=== PATIENT | female | born 1955 | race Caucasian/White ===

== ENCOUNTER 2020-07-30 14:19 | Outpatient (REF) | payer OTHER, SELFPAY ==
--- NOTE | 2020-07-30 14:24 | MM_ITS ---
EXAMINATION: MM SCREENING DIGITAL BREAST TOMOSYNTHESIS, BILATERAL CLINICAL INFORMATION: Screening. Asymptomatic. Personal history right ADH on stereotactic biopsy 2015. Status post subsequent outside open surgical biopsy 12/13/2016 (biopsy site changes with fibrosis, acute and chronic inflammation and hemorrhage, no ductal carcinoma in situ). The lifetime risk of breast cancer based on the Tyrer-Cuzick Model is 26%. COMPARISON: Mammography: 07/25/2019, 06/21/2018, 11/24/2017, 05/23/2017 TECHNIQUE: Digital breast tomosynthesis is performed in both the craniocaudal and mediolateral oblique views along with computer-aided detection (CAD). Synthesized 2D images are generated from the tomosynthesis. Additional left CC and left MLO views are provided. FINDINGS: There are scattered areas of fibroglandular density (ACR BI-RADS breast composition Category b). The breasts show no interval mass or architectural abnormality or developing density. The left breast shows no abnormal calcifications. The right breast has post therapy changes with surgical clips and mild reduced breast size and stable scarring. There are some fine stable calcifications anteriorly in the area of the dermal scar. Some new calcifications are present at the lumpectomy bed. Patient will be recalled for additional magnification views to further characterize. MM/MM tomosynthesis screening BI IMPRESSION: 1. Right: Increased calcifications in the lumpectomy bed. 2. Left: No mammographic evidence of malignancy. ASSESSMENT: BI-RADS 0: Incomplete - Need Additional Imaging Evaluation RECOMMENDATION: 1. Additional views of the right breast (magnification CC, magnification ML). 2. Radiology department staff will contact the patient for additional imaging. 3. The lifetime risk of breast cancer based on the Tyrer-Cuzick Model is 26%. Additional annual adjunct screening with breast MRI may be of benefit in women with a risk score of 20% or greater. This patient's information was entered into a reminder system with a target due date for their next mammogram.
== END 2020-07-30 14:20 | disposition home or self-care (01) ==
LOC: HO.MAMMO 14:19
PROVIDERS: PCP Hospitalist; Visit Provider Hospitalist
DX: Z12.31 Encounter for screening mammogram for malignant neoplasm of breast (principal)
CPT/HCPCS: 77063; 77067

== ENCOUNTER 2020-08-27 14:25 | Outpatient (REF) | payer OTHER, SELFPAY ==
--- NOTE | ~2020-08-27 | MM_ITS ---
EXAMINATION: MM DIAGNOSTIC DIGITAL BREAST TOMOSYNTHESIS, RIGHT CLINICAL INFORMATION: Calcifications in the post lumpectomy bed. COMPARISON: Mammography: July 30, 2020 and studies dating back to September 19, 2011 TECHNIQUE: Digital breast mammography in spot magnification views craniocaudal and 90 degree mediolateral projections. FINDINGS: There are scattered areas of fibroglandular density (ACR BI-RADS breast composition Category b). The developing calcifications are likely dystrophic in nature and six-month follow-up magnification films are recommended. Results are discussed with the patient at time of visit. MM/MM tomosynthesis diagnostic RT IMPRESSION: Right breast calcifications within the post lumpectomy bed are likely developing dystrophic calcifications. Six-month follow-up right breast study suggested. ASSESSMENT: BI-RADS 3: Probably Benign RECOMMENDATION: Diagnostic mammography in 6 months. This patient's information was entered into a reminder system with a target due date for their next mammogram.
== END 2020-08-27 14:26 | disposition home or self-care (01) ==
LOC: HO.MAMMO 14:25
PROVIDERS: PCP Hospitalist; Visit Provider Hospitalist
DX: R92.1 Mammographic calcification found on diagnostic imaging of breast (principal)
CPT/HCPCS: 77061; 77065

== ENCOUNTER 2021-02-25 14:20 | Outpatient (REF) | payer OTHER, SELFPAY ==
--- NOTE | ~2021-02-25 | MM_ITS ---
EXAMINATION: MM DIAGNOSTIC DIGITAL BREAST TOMOSYNTHESIS, RIGHT CLINICAL INFORMATION: Short interval six-month follow-up probable benign dystrophic calcifications at lumpectomy site. Personal history right ADH on stereotactic biopsy 2015. Status post subsequent outside open surgical biopsy 12/13/2016 (biopsy site changes with fibrosis, acute and chronic inflammation and hemorrhage, no ductal carcinoma in situ). The lifetime risk of breast cancer based on the Tyrer-Cuzick Model is 25%. COMPARISON: Mammography: 08/27/2020, 07/30/2020 (BI-RADS 0), 07/25/2019, 06/21/2018 TECHNIQUE: Digital breast tomosynthesis is performed in both the craniocaudal and mediolateral oblique views along with computer-aided detection (CAD). Synthesized 2D images are generated from the tomosynthesis. Additional magnification right CC and magnification right ML views are obtained. FINDINGS: There are scattered areas of fibroglandular density (ACR BI-RADS breast composition Category b). There are post therapy changes with surgical clips at posterior 12:00 position. There are some benign appearing coarse calcifications at the lumpectomy site. No interval suspicious calcifications in this area. There are incidental benign round calcifications again noted in the dermal scar. There is no interval mass or architectural abnormality or developing density. Results are provided to the patient at time of visit by the technologist. Will obtain magnification views at time of annual bilateral exam, due in 6 months. MM/MM tomosynthesis diagnostic RT IMPRESSION: Benign appearing dystrophic calcification in the lumpectomy bed. No interval suspicious changes. ASSESSMENT: BI-RADS 3: Probably Benign RECOMMENDATION: 1. Diagnostic mammography at time of annual bilateral exam, due in 6 months. 2. The lifetime risk of breast cancer based on the Tyrer-Cuzick Model is 25%. Additional annual adjunct screening with breast MRI may be of benefit in women with a risk score of 20% or greater. This patient's information was entered into a reminder system with a target due date for their next mammogram.
== END 2021-02-25 14:21 | disposition home or self-care (01) ==
LOC: HO.MAMMO 14:20
PROVIDERS: PCP Hospitalist; Visit Provider Hospitalist
DX: R92.1 Mammographic calcification found on diagnostic imaging of breast (principal)
CPT/HCPCS: 77061; 77065

== ENCOUNTER 2021-08-30 14:23 | Outpatient (REF) | payer OTHER, SELFPAY ==
--- NOTE | ~2021-08-30 | MM_ITS ---
EXAMINATION: MM DIAGNOSTIC DIGITAL BREAST TOMOSYNTHESIS, BILATERAL CLINICAL INFORMATION: Due for yearly. Also short interval follow-up probable benign dystrophic calcifications at right lumpectomy site, performed for atypia. Personal history right ADH on stereotactic biopsy 2015. Status post subsequent outside open surgical biopsy 12/13/2016 (biopsy site changes with fibrosis, acute and chronic inflammation and hemorrhage, no ductal carcinoma in situ). The lifetime risk of breast cancer based on the Tyrer-Cuzick Model is 25%. COMPARISON: Mammography: 02/25/2021, 08/27/2020, 07/30/2020 (BI-RADS 0), 07/25/2019, 06/21/2018 TECHNIQUE: Digital breast tomosynthesis is performed in both the craniocaudal and mediolateral oblique views along with computer-aided detection (CAD). Synthesized 2D images are generated from the tomosynthesis. FINDINGS: There are scattered areas of fibroglandular density (ACR BI-RADS breast composition Category b). There are post therapy changes on the right with surgical clips posterior 12:00 position. There are some benign coarse dystrophic calcifications at the lumpectomy site and some other uniform round calcifications near the dermal scar upper anterior right breast. No interval suspicious change. Left breast is unremarkable. There is no interval mass or architectural abnormality or abnormal calcifications. Results are provided to the patient at time of visit by the technologist. MM/MM tomosynthesis diagnostic BI IMPRESSION: 1. Right: Post therapy changes right breast. Probable benign dystrophic calcifications at lumpectomy site along with other uniform round calcifications near dermal scar. 2. Left: No mammographic evidence of malignancy. ASSESSMENT: BI-RADS 3: Probably Benign RECOMMENDATION: Diagnostic mammography at time of next annual exam, due in 12 months. This patient's information was entered into a reminder system with a target due date for their next mammogram.
== END 2021-08-30 14:24 | disposition home or self-care (01) ==
LOC: HO.MAMMO 14:23
PROVIDERS: Visit Provider Hospitalist
DX: R92.1 Mammographic calcification found on diagnostic imaging of breast (principal)
CPT/HCPCS: 77062; 77066

== ENCOUNTER 2022-01-12 16:29 | Emergency (ER) | payer OTHER, SELFPAY ==
--- NOTE | ~2022-01-12 | XR_ITS ---
EXAMINATION: XR HAND, LEFT CLINICAL INFORMATION: Dog bite. Evaluate for foreign body COMPARISON: None TECHNIQUE: PA, lateral, and oblique views of the left hand. FINDINGS: There is diffuse soft tissue thickening about the hand. There appears be a soft tissue defect about the fourth digit more so in the region of the mid phalanx. Along the ulnar aspect of the fourth middle phalanx there is a tiny 2 mm ossific density seen. This is only appreciated well on the frontal view and not well seen on the other obliquities. I do not appreciate a definitive donor site. Tiny fracture would be suspected. Foreign body would be considered less likely. XR/XR hand LT 2V IMPRESSION: Soft tissue thickening and likely soft tissue defect about the fourth digit. On the frontal view there is a tiny ossific density along the ulnar aspect of the fourth middle phalanx. This is not well appreciated on the other obliquities. Tiny fracture fragment would be suspected but I do not appreciate any definitive donor site. Radiopaque foreign body cannot be excluded either.
[2022-01-12 16:34] VITALS: BP 166/92; PULSE 117; RESP 20; TEMP 36.8; O2SAT 96; BMI 31.6
--- NOTE | 2022-01-12 17:01 | ED_ITS ---
HPI - Animal Bite General Chief Complaint: Animal Bite Stated Complaint: dog bite left hand Time Seen by Provider: 01/12/22 16:58 Source: patient Mode of arrival: ambulatory Limitations: no limitations History of Present Illness HPI narrative: 66-year-old female previously healthy here with report of dog bite the left 4th digit which occurred just prior to arrival. Patient tells me she was breaking up a fight between 2 medium-sized dogs when her hand was bit by 1 of the dogs. Both of the dogs are owned by family members in their rabies vaccinations are up to date. Patient's tetanus status is unknown.. She reports laceration to left 4th digit. No numbness, tingling, weakness of the digit. MD complaint: animal bite Related Data Previous Rx's Medication Instructions Recorded amoxicillin 875 mg-potassium 1 tab PO BID #14 tabs 01/12/22 clavulanate 125 mg tablet Allergies Allergy/AdvReac Type Severity Reaction Status Date / Time Sulfa (Sulfonamide Allergy Unknown Verified 12/22/17 00:00 Antibiotics) Latex Gloves Allergy Unknown Uncoded 12/22/17 00:00 Review of Systems Review of Systems: Yes all other systems are reviewed and are negative Constitutional: Constitutional: Reports no additional constitutional complaints, Denies body ache(s), Denies chills, Denies fever(s), Denies headache(s) and Denies weakness Eyes: Eyes: Reports no additional eye complaints and Denies change in vision ENT: Reports system reviewed and no additional complaints, except as documented, Denies dizziness, Denies headache(s), Denies nasal congestion, Denies nasal discharge and Denies neck pain Cardiovascular: Cardiovascular: Reports no additional cardiovascular complaints, Denies chest pain, Denies leg edema and Denies dyspnea Respiratory: Respiratory: Reports no additional respiratory complaints, Denies cough and Denies dyspnea Gastrointestinal: Gastrointestinal: Reports no additional gastrointestinal complaints, Denies abdominal pain, Denies diarrhea, Denies nausea and Denies vomiting Genitourinary: Genitourinary: Reports no additional female genitourinary complaints and Denies urinary incontinence Musculoskeletal: Musculoskeletal: Reports no additional musculoskeletal complaints, Denies back pain, Denies arthralgias, Denies joint swelling, Denies neck pain, Denies numbness and Denies tingling Integumentary/Breasts: Skin/Breast: Reports system reviewed and no additional complaints, except as docu and Denies rash Comments: Laceration Neurologic: Reports system reviewed and no additional complaints, except as documented, Denies dizziness, Denies headache(s), Denies numbness, Denies tingling and Denies weakness PMFSH Past Medical History Attestation statement: The following information was validated with the patient. Source: old records reviewed and nursing notes reviewed Social History Social History Advance Directives: No Advance Directives Information Provided: No Physical Exam ED Vital Signs: Vital Signs - 24 hr 01/12/22 16:34 Temperature 98.2 F Pulse Rate 117 H Respiratory Rate 20 Blood Pressure 166/92 H Pulse Oximetry 96 Oxygen Delivery Method Room Air BMI result Body Mass Index 31.6 Const General: cooperative, healthy appearing, comfortable and no acute distress Orientation/consciousness: patient oriented x3 Limitations: no limitations HENMT Head: Yes normal to inspection Ears: hearing grossly normal bilaterally Eyes General: appearance normal, both eyes and all related structures Pupils: Equal, round and reactive pupils present Neck Neck: Yes normal visual inspection Chest Chest palpation & inspection: normal inspection of the chest Resp Effort & Inspection: normal respiratory effort Auscultation: clear to auscultation bilaterally Cardio Rate: regular rate Rhythm: regular rhythm Peripheral pulses: Peripheral pulses 2+ throughout GI Inspection: Yes normal to inspection Back/Spine/Pelvis Thoracic/Lumbar Spine: thoracic and lumbar spine normal to inspection Skin General skin exam: no rashes or lesions noted Neuro General: patient oriented x3 and moves all extremities Cranial nerves: Yes Equal, round and reactive pupils present Extrem Other: Two lacerations noted over the volar aspect of the 4th digit. There is full range of motion the digit. Patient is able to flex and extend with no difficulty. Neurovascularly intact distally. Hand/finger images: 1. 3 cm laceration with subcutaneous tissue noted 2. 1 cm laceration with subcutaneous tissue noted Course Course Course Narrative: Dog bite to left 4th digit. The dogs have been vaccinated for rabies. There is a large laceration to the volar aspect of the left 4th digit. Due to the size of laceration we discussed closing the wounds loosely. See procedure note. Of the wound was extensively irrigated with Betadine and normal saline. The hand x-ray showed ?tiny density on the frontal view however this is not visualized on any other views. Less likely foreign body. Question fracture fragment. The patient received 1 dose of prophylactic Augmentin and tetanus while she was here in the emergency department. We discussed that she should return for any signs of infection. Reviewed worrisome signs and symptoms of when to return to the emergency department. Comfortable discharge home. MDM - Animal Bite MDM Narrative Medical decision making narrative: 66-year-old female here with dog bite to the left 4th finger. Patient is right- hand dominant. She has a laceration noted over volar aspect that will need a wound repair. Will obtain x-ray to rule out foreign body. Patient will be updated on her tetanus. Will give prophylactic antibiotics Differential Diagnosis Differential diagnosis: Likely bite by animal Medical Records Attestation: I reviewed the patient's medical records. Lab Data Attestation: I reviewed the patient's lab results. Imaging Data hand xray: Attestation: I personally reviewed and interpreted this imaging study as follows: Radiologist's impression: [place] [id number] XRay Report Signed Patient: Keren Monreal MR#: [id number] : 1955 Acct:[id number] Age/Sex: 66 / F ADM Date: 01/12/22 Loc: HO.ED Attending Dr: Ordering Physician: Danielle Henriquez NP Date of Service: 01/12/22 Procedure(s): XR hand LT 2V Accession Number(s): [id number] cc: Danielle Henriquez NP~ EXAMINATION: XR HAND, LEFT CLINICAL INFORMATION: Dog bite. Evaluate for foreign body? COMPARISON: None? TECHNIQUE: PA, lateral, and oblique views of the left hand. FINDINGS: There is diffuse soft tissue thickening about the hand. There appears be a soft tissue defect about the fourth digit more so in the region of the mid phalanx. Along the ulnar aspect of the fourth middle phalanx there is a tiny 2 mm ossific density seen. This is only appreciated well on the frontal view and not well seen on the other obliquities. I do not appreciate a definitive donor site. Tiny fracture would be suspected. Foreign body would be considered less likely.? XR/XR hand LT 2V IMPRESSION: Soft tissue thickening and likely soft tissue defect about the fourth digit. On the frontal view there is a tiny ossific density along the ulnar aspect of the fourth middle phalanx. This is not well appreciated on the other obliquities. Tiny fracture fragment would be suspected but I do not appreciate any definitive donor site. Radiopaque foreign body cannot be excluded either. Procedures Laceration Laceration 1: Site: hand Side (If applicable): left Size (cm): 1 Description: linear Depth: simple, single layer Pre-repair: wound explored, irrigated extensively and deep structures intact Skin layer closed with: vicryl Size (cm): 5-0 (3) Technique: simple, interrupted Laceration 2: Side (If applicable): left Size (cm): 3 Description: linear Depth: simple, single layer Local Anesthetic: lidocaine 1% Pre-repair: wound explored and irrigated extensively Skin layer closed with: vicryl Size (cm): 5-0 Number of sutures: 6 Technique: simple, interrupted Nerve Block Nerve Block 1: Time out performed: Yes Local Anesthetic: lidocaine 1% Amount of anesthesia used (mL): 3 Side: left Nerve Blocks: digital (Fourth digit) Procedure Successful: Yes Patient Tolerated Procedure: well Complications: none Discharge Plan Discharge Clinical Impression: Dog bite, Finger laceration Patient Disposition: Home, Self-Care Instructions: Animal Bite (ED), Finger Laceration (ED) Additional Instructions: Sutures out in 7-10 days Wash them with soap and water daily No soaking in water but water may run over them Monitor for signs of infection which include redness, fever, odor, drainage Prescriptions: New amoxicillin-pot clavulanate 875-125 mg tablet 1 tab PO BID Qty: 14 0RF Referrals: Colten Ulloa MD [Primary Care Provider] -
[2022-01-12] MEDS: Lidocaine HCl 1 % MPF 5 ML VIAL SUBCUT (18:36)
[2022-01-12] MEDS: Amoxicillin/Potassium Clav 875 MG TABLET PO (18:36)
[2022-01-12] MEDS: Ibuprofen 600 MG TABLET PO (18:36)
[2022-01-12] MEDS: Diphth,Pertus(ACell),Tet Adult 0.5 ML SYRINGE IM (18:36)
== END 2022-01-12 18:53 | disposition home or self-care (01) ==
PROVIDERS: Emergency Provider Emergency Medicine; PCP Internal Medicine
DX: S61.255A Open bite of left ring finger without damage to nail, initial encounter (principal); W54.0XXA Bitten by dog, initial encounter; Y93.9 Activity, unspecified; Y92.9 Unspecified place or not applicable; Y99.9 Unspecified external cause status
CPT/HCPCS: 12002; 29130; 73120; 90471; 90715; 99283; 99284

== ENCOUNTER 2022-08-30 11:48 | Outpatient (REF) | payer OTHER, SELFPAY ==
--- NOTE | ~2022-08-30 | MM_ITS ---
EXAMINATION: MM DIAGNOSTIC DIGITAL BREAST TOMOSYNTHESIS, BILATERAL CLINICAL INFORMATION: Status post right breast lumpectomy. One-year followup right breast calcifications and screening left breast study. COMPARISON: Mammography: 08/29/2021 and studies dating back to 03/22/2016. TECHNIQUE: Digital breast tomosynthesis is performed in both the craniocaudal and mediolateral oblique views along with computer-aided detection (CAD). Synthesized 2D images are generated from the tomosynthesis. Spot magnification views of the right breast in craniocaudal and 90-degree mediolateral views performed. FINDINGS: There are scattered areas of fibroglandular density (ACR BI-RADS breast composition Category b). There is a stable parenchymal pattern of the left breast with no new abnormal dominant masses or suspicious grouping of microcalcifications identified. Patient status post right breast lumpectomy with associated postsurgical scar superiorly. There are 2 groupings of increasing punctate and rounded calcifications about the anterior and mid superior breast which appear to be dermal in origin. No suspicious branching or linear calcifications are identified. Recommend return to routine yearly screening mammography. Results are provided to the patient at time of visit by the technologist. MM/MM tomosynthesis diagnostic BI IMPRESSION: There are no significant changes from prior study. ASSESSMENT: BI-RADS 2: Benign. RECOMMENDATION: Routine annual mammography screening. This patient's information was entered into a reminder system with a target due date for their next mammogram.
== END 2022-08-30 11:49 | disposition home or self-care (01) ==
LOC: HO.MAMMO 11:48
PROVIDERS: PCP Internal Medicine; Visit Provider Internal Medicine
DX: R92.1 Mammographic calcification found on diagnostic imaging of breast (principal)
CPT/HCPCS: 77062; 77066

== ENCOUNTER 2023-09-05 10:19 | Outpatient (REF) | payer MEDICARE, SELFPAY ==
--- NOTE | ~2023-09-05 | MM_ITS ---
EXAMINATION: MM SCREENING DIGITAL BREAST TOMOSYNTHESIS, BILATERAL CLINICAL INFORMATION: Screening. Asymptomatic. The patient is status post conservation surgery for right breast cancer. COMPARISON: Mammography: This study is compared with prior exams dating back to 2018. TECHNIQUE: Digital breast tomosynthesis is performed in both the craniocaudal and mediolateral oblique views along with computer-aided detection (CAD). Synthesized 2D images are generated from the tomosynthesis. FINDINGS: There are scattered areas of fibroglandular density (ACR BI-RADS breast composition Category b). There are no significant masses, abnormal calcifications, or other abnormalities. There are surgical susan in the 12:00 region of the right breast. This is location of the prior breast cancer. MM/MM tomosynthesis screening BI IMPRESSION: No mammographic evidence of malignancy. ASSESSMENT: BI-RADS BI-RADS 2 - Benign Findings RECOMMENDATION: Routine annual mammography screening. 1 year F/U This examination should not preclude the clinical evaluation of a suspicious palpable abnormality. This patient's information was entered into a reminder system with a target due date for their next mammogram.
== END 2023-09-05 10:20 | disposition home or self-care (01) ==
LOC: HO.MAMMO 10:19
PROVIDERS: PCP Internal Medicine; Visit Provider Internal Medicine
DX: Z12.31 Encounter for screening mammogram for malignant neoplasm of breast (principal)
CPT/HCPCS: 77063; 77067

== ENCOUNTER → 2023-09-05 10:30 | Outpatient (BNV) | payer MEDICARE, SELFPAY | PROVIDERS: PCP Internal Medicine; Visit Provider Radiology Diagnostic Radiology | DX: Z12.31 Encounter for screening mammogram for malignant neoplasm of breast (principal) | CPT/HCPCS: 77063; 77067 ==

== ENCOUNTER 2024-01-19 13:51 | Outpatient (AMB) | payer MEDICARE, SELFPAY ==
[2024-01-19 13:52] VITALS: BP 150/72; PULSE 100; TEMP 36.7; O2SAT 97
--- NOTE | 2024-01-19 13:52 | AM.OFFWIN_ITS ---
Intake Vital Signs 01/19/24 13:52 Height 5 ft 3 in BP 150/72 H Blood Pressure Location Lt brachial Position Sitting Pulse 100 Pulse Source Pulse Oximeter Temp 98.0 F Temp Source Oral Pulse Oximetry (%) 97 Intake Visit Reasons: EP rt leg pain Intake Note: pt is here for right leg pain Patient Tobacco Use Status: Never used Tobacco Allergies Sulfa (Sulfonamide Antibiotics) Allergy (Unknown, Verified 01/19/24 13:53) Unknown Latex Gloves Allergy (Mild, Uncoded 01/19/24 13:53) Unknown Do you need a note to return to daycare/school/sports/work: No HPI HPI Comments History of Present Illness Details 68 y/o female patient who presents to [facility] in clinic with c/o right knee pain. This is a chronic ongoing issue. She was by [facility] that she had Osteoarthritis. [facility] Social History Patient Tobacco Use Status: Never used Tobacco Review of Systems Const All systems reviewed & are unremarkable except as noted in HPI and below Physical Exam Vital Signs: Last Vital Signs Temp 98.0 F 01/19/24 13:52 Pulse 100 01/19/24 13:52 BP 150/72 H 01/19/24 13:52 Pulse Ox 97 01/19/24 13:52 Const General: comfortable and no acute distress Nutritional Appearance: obese Orientation/consciousness: patient oriented x3 Limitations: ambulation with cane Neuro General: patient oriented x3, gait normal and moves all extremities Extrem Right lower extremity: normal to inspection, full ROM and knee Details: normal to inspection, tenderness and normal ROM; no swelling, no ecchymosis and no crepitus Left lower extremity: normal to inspection and full ROM Psych Speech and movement: Normal speech and movement present Assessment & Plan Assessment & Plan (1) Osteoarthritis of right knee: Code(s): M17.11 - Unilateral primary osteoarthritis, right knee Qualifiers: Osteoarthritis type: unspecified Qualified Code(s): M17.11 - Unilateral primary osteoarthritis, right knee Plan: Recommended [facility] Walk in clinic Knee Brace Low Impact exercises such walking or swimming Ibuprofen for pain relief Weight loss Medications: New ibuprofen 800 mg PO Q8H 30 tabs 0RF M17.11 - Unilateral primary osteoarthritis, right knee Discontinued amoxicillin-pot clavulanate 875-125 mg Discontinued Reason: Patient Completed Course 1 tab PO BID 14 tabs 0RF Coding Level of Care Code Est Pt Level 3 (25488) Diagnoses Osteoarthritis of right knee, unspecified osteoarthritis type M17.11 Osteoarthritis type: unspecified Time Spent (min) 15
== END 2024-01-19 14:26 | disposition home or self-care (01) ==
PROVIDERS: PCP Internal Medicine; Visit Provider Nurse Practitioner Family
DX: M17.11 Unilateral primary osteoarthritis, right knee (principal)
CPT/HCPCS: 99213

== ENCOUNTER 2024-09-10 10:16 | Outpatient (REF) | payer MEDICARE, SELFPAY ==
--- OUTSIDE RECORDS SUMMARY | 2024-09-10 11:13 | XMS_ITS ---
Author Organization [facility] Address [address] [place] [id number] Care Team Providers Care Rfid Strategist Name Role Phone Colten Ulloa Primary Care Provider Rosita Askew [phone] REASON FOR VISIT rs appt 07/07/24 Encounters Encounter Location Date Provider Diagnosis [address] [id number] 07/01/2024 Rosita Ferreira Plan Of Treatment Next Appt Details Provider Name:Christi vasquez, 11/13/2024 09:00:00 AM, [address] [place] [address], [id number], Progress Notes * Keren YADAV ADOB: [birth year] (68 yo F)Acc No.[id number]:07/01/2024 Patient:?Keren YADAV :1955???Age:68 Y???Sex:Female Address:[address] [place] [address], [id number] * true * Date:? Generated for Ivettei yovany/Carlyn/eTransmitting on:?09/10/2024 11:13 AM EST
--- OUTSIDE RECORDS SUMMARY | 2024-09-10 11:14 | XMS_ITS | Patient Health Record ---
Author Organization [facility] [place] Address [address] [place] [address] Care Team Providers Care Whale Trainer Name Role Phone Colten Ulloa Primary Care Provider Rosita Askew Unavailable [phone] Joel Sebastian Unavailable [phone] Christi Schuster Unavailable [phone] Allergies Allergen (clinical drug ingredient) Drug/Non Drug Allergy documented on EMR Reaction Allergy Type Onset Date Status sulfamethoxazole / trimethoprim Bactrim Unknown Drug Allergy Active Adhesive Tape rash Drug Allergy Act sandra Latex Latex rash Allergy Active Results Component Value Reference Range Notes HEMOGLOBIN A1C (GLYCOHEMOGLO BIN) Reviewed date:08/14/2024 08:34:20 AM Interpretation: Performing Lab: Notes/Report: HEMOGLOBIN A1C % (HH) 6.7 Reason For Referral No Information Medications Medication SIG (Take, Route, Frequency, Duration) Notes Start Date End Date Status ProAir HFA 108 (90 Base) MCG/ACT Inhalation for 17 Active Extra Depth Diabetic Shoes with 3 Pair Custom heat-molded multi-density innersoles for 1 year Dx: Not-Taking Work Note . . . patient is allow ed to wear mesh upper sneakers to work due to her condition and she can only work 4hours daily at most Active Ciclopirox Olamine 0.77 % 1 application to affected area Externally Twice a day to effected areas on feet for 30 days Active Tamoxifen Citrate 20 MG Oral for 90 Not-Taking Ozempic Active Physical Therapy . . . 2-3x/week for 3- 4 weeks 08/05/2021 Not-Taking amLODIPine Besylate 5 MG Oral for 30 Active Valsartan 160 MG Orally Not -Taking Atorvastatin Calcium 80 MG Oral for 90 Active Losartan Potassium 25 MG 1 tablet Orally Once a day for 30 day(s) Active metFORMIN HCl 1000 MG Oral for 30 Active Montelukast Sodium 10 MG Oral for 90 Active Omeprazole 20 MG Oral for 30 A ctive Immunizations Vaccine Route Administration Date Status Commreynaldo nts COVID-19 Pfizer BioNTech Vaccine Unknown 05/11/2021 Administered 1st 08/21/20 2nd 09/11/20 Influenza Unknown 04/24/2017 Administered Influenza Unknown 06/04/2018 Refused Influenza Unknown 04/23/2022 Administered Social History Tobacco Use: Social History Observation Description Date Details (start date - stop date) Never Smoker NA - NA Tobacco Use/Smoking Question Answer Notes Are you a: nonsmoker Additional Findings: Tobacco Non-User Current no n-smoker Alcohol Screen Question Answer Notes Did you have a drink containing alcohol in the p ast year? No Points 0 Interpretation Negative Tobacco use other than smoking: Question Answer Notes Are you an other tobacco user? No Problems Problem Type SNOMED Code ICD Code Onset Dates Problem Status W/U Status Risk Notes Problem Acquired hammer toe of right foot (3697655219495167 ) Other hammer toe(s) (acquired), right foot (M20.41) Active confirmed Problem Acquired hallux valgus (71173292) Hallux valgus (acquired), left foot (M20.12) Active confirmed Problem Acquired hammer toe of left foot (9313268715137267 ) Other hammer toe(s) (acquired), left foot (M20.42) Active confirmed Problem Localized, primary osteoarthritis of the ankle and/or foot (221155155) Primary osteoarthritis, left ankle and foot (M19.072) Active confirmed Problem Acquired hallux valgus (17831628) Hallux valgus (acquired), right foot (M20.11) Active confirmed Problem Polyneuropathy due to type 2 diabetes mellitus (521505029) Type 2 diabetes mellitus with diabetic polyneuropathy (E11.42) Active confirmed Problem 38893272 Venous insufficiency (I87.2) Active confirmed Vital Signs Blood pressure diastolic 80 mm Hg 08/14/2024 Height 63.5 in 08/14/2024 Blood pressure systolic 116 mm Hg 08/14/2024 Weight 175 lbs 08/14/2024 BMI 30.51 kg/m2 08/14/2024 Encounters Encounter Location Date Provider Diagnosis [address] [address] 09/27/2023 Joel Werner unguium B35.1 ; Type 2 diabetes mellitus with diabetic polyneuropathy E11.42 ; Pain in right toe(s) M79.674 ; Pain in left toe(s) M79.675 ; Hallux valgus (acquired), left foot M20.12 ; Hallux valgus (acquired), right foot M20.11 ; Xerosis cutis L85.3 ; Plantar fascial fibromatosis M72.2 ; Tinea pedis B35.3 ; Metatarsalgia, left foot M77.42 ; Venous insufficiency I87.2 and Eczema, unspecified type L30.[address] [address] 12/27/2023 Joel Werner unguium B35.1 ; Type 2 diabetes mellitus with diabetic polyneuropathy E11.42 ; Pain in right toe(s) M79.674 ; Pain in left toe(s) M79.675 ; Hallux valgus (acquired), left foot M20.12 ; Hallux valgus (acquired), right foot M20.11 ; Xerosis cutis L85.3 ; Plantar fascial fibromatosis M72.2 ; Tinea pedis B35.3 ; Metatarsalgia, left foot M77.42 ; Venous insufficiency I87.2 and Eczema, unspecified type L30.[address] [address] 04/03/2024 Joel Garciaea unguium B35.1 ; Type 2 diabetes mellitus with diabetic polyneuropathy E11.42 ; Pain in right toe(s) M79.674 ; Pain in left toe(s) M79.675 ; Hallux valgus (acquired), left foot M20.12 ; Hallux valgus (acquired), right foot M20.11 ; Xerosis cutis L85.3 ; Plantar fascial fibromatosis M72.2 ; Tinea pedis B35.3 ; Metatarsalgia, left foot M77.42 ; Venous insufficiency I87.2 and Eczema, unspecified type L30.[address] [facility] [address] [address] 08/14/2024 Christi Mariely Type 2 diabetes mellitus with diabetic polyneuropathy E11.42 ; Tinea pedis of both feet B35.3 ; Tinea unguium B35.1 ; Other hammer toe(s) (acquired), right foot M20.41 and Other hammer toe(s) (acquired), left foot M20.42 [facility] [address] 07/01/2024 Rosita Ferreira Assessments Encounter Date Diagnosis (ICD Code) Assessment Notes Treatment Notes Treatment Clinical Notes Section Notes 09/27/2023 Tinea unguium (ICD-10 - B35.1) 09/27/2023 Type 2 diabetes mellitus with diabetic polyneuropathy (ICD-10 - E11.42) 12/27/2023 Tinea unguium (ICD-10 - B35.1) 04/03/2024 Tinea unguium (ICD-10 - B35.1) 08/14/2024 Type 2 diabetes mellitus with diabetic polyneuropathy (ICD-10 - E11.42) 08/14/2024 Tinea pedis of both feet (ICD-10 - B35.3) 08/14/2024 Tinea unguium (ICD-10 - B35.1) 12/27/2023 Type 2 diabetes mellitus with diabetic polyneuropathy (ICD-10 - E11.42) 04/03/2024 Type 2 diabetes mellitus with diabetic polyneuropathy (ICD-10 - E11.42) 09/27/2023 Pain in right toe(s) (ICD-10 - M79.674) 09/27/2023 Pain in left toe(s) (ICD-10 - M79.675) 12/27/2023 Pain in right toe(s) (ICD-10 - M79.674) 08/14/2024 Other hammer toe(s) (acquired), right foot (ICD-10 - M20.41) Patient Educated with: DIABETIC FOOT CARE INSTRUCTIONS. pdf (DIABETIC FOOT CARE INSTRUCTIONS. pdf) 04/03/2024 Pain in right toe(s) (ICD-10 - M79.674) 04/03/2024 Pain in left toe(s) (ICD-10 - M79.675) 08/14/2024 Other hammer toe(s) (acquired), left foot (ICD-10 - M20.42) 12/27/2023 Pain in left toe(s) (ICD-10 - M79.675) 09/27/2023 Hallux valgus (acquired), left foot (ICD-10 - M20.12) 09/27/2023 Hallux valgus (acquired), right foot (ICD-10 - M20.11) 12/27/2023 Hallux valgus (acquired), left foot (ICD-10 - M20.12) 04/03/2024 Hallux valgus (acquired), left foot (ICD-10 - M20.12) 12/27/2023 Hallux valgus (acquired), right foot (ICD-10 - M20.11) 04/03/2024 Hallux valgus (acquired), right foot (ICD-10 - M20.11) 09/27/2023 Xerosis cutis (ICD-10 - L85.3) 12/27/2023 Xerosis cutis (ICD-10 - L85.3) 09/27/2023 Plantar fascial fibromatosis (ICD-10 - M72.2) 04/03/2024 Xerosis cutis (ICD-10 - L85.3) 12/27/2023 Plantar fascial fibromatosis (ICD-10 - M72.2) 04/03/2024 Plantar fascial fibromatosis (ICD-10 - M72.2) 09/27/2023 Tinea pedis (ICD-10 - B35.3) 09/27/2023 Metatarsalgia, left foot (ICD-10 - M77.42) 12/27/2023 Tinea pedis (ICD-10 - B35.3) 04/03/2024 Tinea pedis (ICD-10 - B35.3) 12/27/2023 Metatarsalgia, left foot (ICD-10 - M77.42) 04/03/2024 Metatarsalgia, left foot (ICD-10 - M77.42) 09/27/2023 Venous insufficiency (ICD-10 - I87.2) 09/27/2023 Eczema, unspecified type (ICD-10 - L30.9) 04/03/2024 Venous insufficiency (ICD-10 - I87.2) 12/27/2023 Venous insufficiency (ICD-10 - I87.2) 12/27/2023 Eczema, unspecified type (ICD-10 - L30.9) 04/03/2024 Eczema, unspecified type (ICD-10 - L30.9) Plan Of Treatment Pending Test Test Name Order Date X ray : Foot, left 2V 02/28/2018 X ray : Foot, left 2V 08/05/2021 X ray : Foot, right 2V 08/05/2021 X ray : Foot, right 2V 02/28/2018 X ray : Foot, left 3V 05/04/2022 67626-JVQFBCN NAIL, 1-5 02/28/2018 52590-OSDSEBI NAIL, 1-5 06/04/2018 00805-UKJCJVD NAIL, 1-5 09/03/2018 16982-BQAR SKIN LESIONS, OVER 4 09/03/19 19 59756-VOQX SKIN LESIONS, OVER 4 12/14/19 19 54302-UIEC SKIN LESIONS, OVER 4 04/03/20 19 16585-CTWY SKIN LESIONS, OVER 4 12/07/19 18 26939-FPTN SKIN LESIONS, OVER 4 02/29/20 18 60582-ZWOW SKIN LESIONS, OVER 4 06/04/20 18 46891-FIBL SKIN LESIONS, OVER 4 05/20/20 21 80078-GKVN SKIN LESIONS, OVER 4 08/05/19 22 12619-YQNH SKIN LESIONS, OVER 4 07/08/20 19 29221-NFUR SKIN LESIONS, OVER 4 05/18/20 20 25867-CDBT SKIN LESIONS, OVER 4 09/10/19 21 58836-OEFH SKIN LESIONS, OVER 4 01/19/20 21 26423, W3960-OUOUY/INJECT, JOINT/BURSA 1 L9535-ZYDQUMXD DYSTROPHIC NAILS ANY # H6750-TOWJZKIH DYSTROPHIC NAILS ANY # G7524-JZSKHLKH DYSTROPHIC NAILS ANY # A5447-KSMVLQXW DYSTROPHIC NAILS ANY # B6761-JHJDMIBQ DYSTROPHIC NAILS ANY # W8078-YCRXQFVV DYSTROPHIC NAILS ANY # E7193-OMUMEFUI DYSTROPHIC NAILS ANY # I5050-IMRZAGYD DYSTROPHIC NAILS ANY # L7831-XORJLUHI DYSTROPHIC NAILS ANY # L4400-ONKVVTGZ DYSTROPHIC NAILS ANY # O9539-TOBMZBOL DYSTROPHIC NAILS ANY # 56760- Nail Unit Biopsy 12/06/2017 Next Appt Details Provider Name:Christi vasquez, 11/13/2024 09:00:00 AM, [address] [place], [address], Insurance Providers Payer Name Payer Address Payer Phone Subscriber Number Group Number Insured Name Patient Relationship to Insured Coverage Start Date Coverage End Date [employer] [address] [place] [address] [id number] Keren Monreal Self - patient is the insured Medical (General) History Medical History History ICD Code asthma CAD (Cholesterol) Cancer Headaches Measles Chicken pox High blood pressure Reflux ( GERD) Eczema type II diabetes Surgical History Surgery Date(Month/Year) section 1979,1982 cancer surgery, Ductal 11/2016 Meniscus repair 04/29/19 vascular surgery 08/2020 Hospitalization History Reason Date(Month/Year) [facility] - UTI/dehydration 03/2018
--- OUTSIDE RECORDS SUMMARY | 2024-09-10 11:14 | XMS_ITS ---
Author Organization [facility] Johnnie segovia [place] Address [address] [place] [address] Care Team Providers Care Senior Catering Sales Manager Name Role Phone Colten Ulloa Primary Care Provider Rosita Askew Unavailable [phone] CocoChristi vasquez Unavailable [phone] Allergies Allergen (clinical drug ingredient) Drug/Non Drug Allergy documented on EMR Reaction Allergy Type Onset Date Status sulfamethoxazole / trimethoprim Bactrim Unknown Drug Allergy Active Adhesive Tape rash Drug Allergy Act sandra Latex Latex rash Allergy Active REASON FOR VISIT At Risk Footcare, Skin Problem, Toe Irritation Medications Medication SIG (Take, Route, Frequency, Duration) Notes Start Date End Date Status Extra Depth Diabetic Shoes with 3 Pair Custom heat-molded multi-density innersoles for 1 year Dx: Not-Taking Work Note . . . patient is allow ed to wear mesh upper sneakers to work due to her condition and she can only work 4hours daily at most Active Tamoxifen Citrate 20 MG Oral for 90 Not-Taking Physical Therapy . . . 2-3x/week for 3- 4 weeks 08/05/2021 Not-Taking Valsartan 160 MG Orally Not -Taking ProAir HFA 108 (90 Base) MCG/ACT Inhalation for 17 Active Losartan Potassium 25 MG 1 tablet Orally Once a day for 30 day(s) Active metFORMIN HCl 1000 MG Oral for 30 Active Montelukast Sodium 10 MG Oral for 90 Active Omeprazole 20 MG Oral for 30 A ctive Ciclopirox Olamine 0.77 % 1 application to affected area Externally Twice a day to effected areas on feet for 30 days Active Ozempic Active amLODIPine Besylate 5 MG Oral for 30 Active Atorvastatin Calcium 80 MG Oral for 90 Active Social History Tobacco Use: Social History Observation Description Date Details (start date - stop date) Never Smoker NA - NA Tobacco Use/Smoking Question Answer Notes Are you a: nonsmoker Additional Findings: Tobacco Non-User Current no n-smoker Tobacco use other than smoking: Question Answer Notes Are you an other tobacco user? No Problems Problem Type SNOMED Code ICD Code Onset Dates Problem Status W/U Status Risk Notes Problem Acquired hammer toe of right foot (8767306117312 105) Other hammer toe(s) (acquired), right foot (M20.41) Active confirmed Problem Acquired hammer toe of left foot (9083491686928 103) Other hammer toe(s) (acquired), left foot (M20.42) Active confirmed Vital Signs Height 63.5 in 08/14/2024 Weight 175 lbs 08/14/2024 BMI 30.51 kg/m2 08/14/2024 Blood pressure systolic 116 mm Hg 08/14/19 25 Blood pressure diastolic 80 mm Hg 025 Encounters Encounter Location Date Provider Diagnosis [facility] [address] [address] 08/14/2024 Christi Schuster Type 2 diabetes mellitus with diabetic polyneuropathy E11.42 ; Tinea pedis of both feet B35.3 ; Tinea unguium B35.1 ; Other hammer toe(s) (acquired), right foot M20.41 and Other hammer toe(s) (acquired), left foot M20.42 Assessments Encounter Date Diagnosis (ICD Code) Assessment Notes Treatment Notes Treatment Clinical Notes Section Notes 08/14/2024 Type 2 diabetes mellitus with diabetic polyneuropathy (ICD-10 - E11.42) 08/14/2024 Tinea pedis of both feet (ICD-10 - B35.3) 08/14/2024 Tinea unguium (ICD-10 - B35.1) 08/14/2024 Other hammer toe(s) (acquired), right foot (ICD-10 - M20.41) Patient Educated with: DIABETIC FOOT CARE INSTRUCTIONS. pdf (DIABETIC FOOT CARE INSTRUCTIONS. pdf) 08/14/2024 Other hammer toe(s) (acquired), left foot (ICD-10 - M20.42) Plan Of Treatment Treatment Notes Assessment Notes Other hammer toe(s) (acquired), right fo ot Patient Educated with: DIABETIC FOOT CARE INSTRUCTIONS.pdf (DIABETIC FOOT CARE INSTRUCTIONS.pdf) Next Appt Details Follow Up: 3 Months, Reason: Provider Name:Christi Vasquez Coco vasquez, 11/13/2024 09:00:00 AM, [address] [place] [address], [phone], Procedure Notes * Category Sub-Category Detail Notes Debride Nail 6-10 Nail debridement Due to the cl inical pathology outlined in the exam findings, performance of this nail treatment is medically necessary as its management by an unskilled/untrained nonprofessional would put this patients foot and overall health at risk. Therefore, debridement to affected nail(s), as described in exam ( TA, T1, T2, T3, T4, T5, T6, T7, T8, T9, ), was performed exclusively by the physician of record to reduce/remove overall nail length, girth, thickness, subungual debris, and necrotic tissue, by manual and/or electrical means through the use of a nail nipper and/or dremel-type spice grinder, to a more viable healthy nail plate or bed tissue 6-10 nails in total. Silver nitrate was used for any petechial bleeding as necessary. Definitive antifungal treatment options, both pharmaceutical and surgical, have been reviewed and discussed with the patient. The patient solely prefers the use of intermittent/as needed professional debridement services for their nail condition and understands the need for additional periodic treatments to maintain effectiveness in symptomatic relief - 12905 Keratoma Treatment Parring or Cutting o f Benign Hyperkeratotic Lesion(s) (-56) 2-4 Lesions - Due to the at risk nature of the patients medical condition as documented in the exam findings, performance of this keratoderma treatment is medically necessary as its management by an unskilled/untrained nonprofessional would put this patients foot and overall health at risk. Therefore, the benign hyperkeratotic lesions, ( 4 ) in total, locations as stated and described in the exam ( Medial plantar,TA,T5,SUB MTH (s),1,B/L), were pared, and/or cut utilizing a sterile 15 blade, tissue nippers, and/or power dremel instrumentation by the physician of record - 72323 Progress Notes * Keren YADAV ADOB: [birth year] (68 yo F)Acc No.[id number]:08/14/2024 Progress Note Patient:?Keren YADAV Provider:?Christi Schuster DPM :1955???Age:68 Y???Sex:Female D ate:08/14/2024 Address:[address] [place], [place] [id number] Pcp:Colten Ulloa Subjective: * Chief Complaints: * ???At Risk FootcareSkin Prob lemToe Irritation * HPI: ???At Risk footcare:?Pt States Last PCP Visit:?Date?06/23/2024 ???Skin problems:?Nature:?scaling , redness.?Location:?B/L .?Duration:?several days.?Course:?improved.?Treatments:?Medication (Ciclopirox Olamine 0.77 Cream) Econazole from Dermatology.?Toe pain:?Location:?B/L feet.?Duration:?several years.?Course:?worse.?Aggravated by:?shoes, any pressure.?Treatments:?change in shoes.? * ROS:?General/Constitutional:?Nausea?denies.?Vomiting?denies.?Hunger Thirst?denies.?Loss appetite?denies.?Chills?denies.?Fatigue?denies.?Fever?denies.?Night Sweats?admits.?Unexplained weight loss?denies.?Unexplained weight gain?denies.?HEENTM:?Dentures?denies.?Dizziness?denies.?Glasses/contacts?denies.?Retinopathy?den ies.?Blurred/double vision?denies.?TMJ?denies.?Discharge/drainage?denies.?Implants?denies.?Sore throat?denies.?Dental implants?denies.?Hard of hearing ?denies.?Difficulty chewing/swallowing/speaking?denies.?Nose bleeds?denies.?Sore mouth?denies.?Respiratory:?On O xygen?denies.?Pneumonia/pleurisy?denies.?Bronchitis?denies.?Emphysema?denies.?Co ughing?denies.?Cough blood?denies.?Shortness of breath?denies.?Wheezing?denies.?Cardiovascular:?Pacemaker?denies.?MVP?denies.?WPW?denies.?CHF?denies.?Heart attack?denies.?Septal defect?denies.?Rapid beat?denies.?Chest pain ?denies.?Atrial Fib.?denies.?Murmur/Palpitations?denies.?Gastrointestinal:?Hemorrhoids?denies.?Stomach/Abdominal pain?denies.?Dark blood stool?denies.?Irritable bowel ?denies.?Constipation?denies.?Diarrhea?denies.?Hematology:?Swelling?denies.?Clots?denies.?Varicose Veins?admits.?Bruising?denies.?Bleeding problem?denies.?Genitourinary:?Blood urine?denies.?Frequent/Painfu/urination/bladder control?denies.?Kidney stones?denies.?Infection (UTI)?denies.?Nephropathy?denies.?sex trans dis (STD)?denies.?Prostate?denies.?Musculoskeletal:?Hammertoes?denies.?Bunions?denies.?Back Pain?denies.?Muscle Cramps/ Resting?admits.?Muscle cramps / walking?denies.?Generalized aches and pains?denies.?Weakness?denies.?Integ.:?Ramos?admits.?Scars?denies.?Corns/calluses?denies.?Ingrown nails?denies.?Painful nails?denies.?Open Sores?denies.?Rashes?denies.?Neurologic:?Difficulty sleeping?denies.?Brain disorder?denies.?Numbness?denies.?Balance t rouble?denies.?Confusion?denies.?Fainting/blackouts?denies.?Tingling?denies.?Gus mors?denies.? * Medical History:? * Surgical History:? s ection 1979,1982cancer surgery, Ductal 11/2016Meniscus repair 04/29/19vascular surgery 08/2020 * Hospitalization/Major Diagno stic Procedure:?[facility] - UTI/dehydration 03/2018 * Family History:?Mother: dece ased, diagnosed with Family history of arthritis.?Father: , foot problems, diagnosed with Other malignant neoplasm of unspecified site.?Paternal Grand Mother: diagnosed with Other malignant neoplasm of unspecified site.?Maternal Grand Mother: diagnosed with Unspecified cerebral artery occlusion with cerebral infarction.?Maternal Grand Father: diagnosed with Unspecified cerebral artery occlusion with cerebral infarction.?Maternal uncle: diagnosed with Unspecified cerebral artery occlusion with cerebral infarction.? * Social History:?Tobacco Use:?Tobacco Use/Smoking?Are you a:?nonsmoker ?Additional Findings: Tobacco Non-User?Current non-smoker ?Tobacco use other than smoking?Are you an other tobacco user??No ???Miscellaneous:?Caffeine: yes, frequency:, 2-3 cups per day. ?Children: yes, 2. ?Exercise: yes, Shopping, gardening, swimming, walking. ?Marital status: . ?Occupation: [employer], [employer], [employer]. * Medications:?TakingCiclopiro x Olamine 0.77 % Cream 1 application to affected area Externally Twice a day to effected areas on feet Ozempic amLODIPine Besylate 5 MG Tablet Oral Atorvastatin Calcium 80 MG Tablet Oral Losartan Potassium 25 MG Tablet 1 tablet Orally Once a day metFORMIN HCl 1000 MG Tablet Oral Montelukast Sodium 10 MG Tablet Oral Omeprazole 20 MG Capsule Delayed Release Oral ProAir HFA 108 (90 Base) MCG/ACT Aerosol Solution Inhalation Work Note . . . . patient is allowed to wear mesh upper sneakers to work due to her condition and she can only work 4hours daily at most Taking Ciclopirox Olamine 0.77 % Cream 1 application to affected area Externally Twice a day to effected areas on feet Taking Ozempic Taking amLODIPine Besylate 5 MG Tablet Oral Taking Atorvastatin Calcium 80 MG Tablet Oral Taking Losartan Potassium 25 MG Tablet 1 tablet Orally Once a day Taking metFORMIN HCl 1000 MG Tablet Oral Taking Montelukast Sodium 10 MG Tablet Oral Taking Omeprazole 20 MG Capsule Delayed Release Oral Taking ProAir HFA 108 (90 Base) MCG/ACT Aerosol Solution Inhalation Taking Work Note . . . . patient is allowed to wear mesh upper sneakers to work due to her condition and she can only work 4hours daily at most Not-Taking/PRNExtra Depth Diabetic Shoes with 3 Pair Custom heat-molded multi-density innersoles for 1 year Dx: Tamoxifen Citrate 20 MG Tablet Oral Physical Therapy . . . . 2-3x/week Valsartan 160 MG Tablet Orally Medication List reviewed and reconciled with the patientNot-Taking/PRN Extra Depth Diabetic Shoes with 3 Pair Custom heat-molded multi-density innersoles for 1 year Dx: Not-Taking/PRN Tamoxifen Citrate 20 MG Tablet Oral Not-Taking/PRN Physical Therapy . . . . 2-3x/week Not-Taking/PRN Valsartan 160 MG Tablet Orally Medication List reviewed and reconciled with the patient * Allergies:?Adhesive Tape: ra shBactrimLatex: kodi[Allergies Verified] Objective: * Vitals:?Ht: 63.5, Wt:175, BM I:30.51, Shoe size: 8.5, BP:116/80mm Hg, BS: not taken, Wt-k.38 kg. * ???Past Orders: ???Lab:HEMOGLOBIN A1C (GLYCO HEMOGLOBIN) (Order Date - 06/23/2024) (Collection Date & Time - 06/23/2024 08:33 AM) ? Value Reference Range ?HEMOGLOBIN A1C % (HH) 6.7 * Examination: ???Ophthalmology Referral: ?DIABETES EYE EXAM?Neurological: ?SENSORY:? Neurological exam demonstrates, reduced light touch sensation, reduced sharp/dull pin prick discrimination , B/L, 5.07 monofilament test performed at plantar aspects of 5 varied sites per foot shows sensation, reduced , B/L.?Nails: ?NAILS are:?Elongated, overgrown, dystrophic, lytic, greater than 3mm thick, discolored and friable with crumbly malodorous subungual debris, TA, T1, T2, T3, T4, T5, T6, T7, T8, T9.?Dermatologic: ?SKIN FINDINGS:?Skin shows?approximately 75 percent LESS, sign(s) of, erythema, scaling, in a moccasin fashion, no fissure(s) present, B/L Skin exam reveals Keratotic lesion(s) located at , , Medial plantar,TA,T5,SUB MTH (s),1,B/L.?Vascular: ?DP PULSES (B):?3/4, B/L.?PT PULSES (B):?3/4, B/L.?CAPILLARY FILL TIME:?immediate, all digits, B/L.?TROPHIC CONDITION-TEXTURE/ELASTICITY/TURGOR/HAIR GROWTH (B):?normal, B/L.?TEMPERTURE GRADIENT (C):?normal, warm to cool, proximal to distal, B/L, B/L.?Orthopedic: ?MUSCLE STRENGTH:?5/5 all groups in a symmetrical fashion, B/L.?BUNION:?Medially prominent 1st MPJ, inflammation present, erythema at exostosis, RIGHT, Lateral tracking 1st MPJ incompletely reducible, B/L.?DIGITAL DEFORMITIES:?Digital contracture, PIPJ, 2-5 B/L, incompl-reducible to push-up test, no over, nor underlapping,?there is?evidence of shoe producing skin irritation.?FOOTWEAR:?worn, non-supportive, shoe gear properties exacerbate patient's foot/toe deformity.?General Examination: ?GENERAL APPEARANCE:?Reveals a pleasant, alert, well nourished, well- developed, well hydrated individual, who demonstrates proper attention to hygiene/body habitus, and is in no acute distress, Pt serves as own historian for office visit today.?ORIENTED:?person, place, and time.?FOOT EXAM:?Footwear Evaluation? Assessment: * Assessment: 1.?Type 2 diabetes mellitus with diabetic polyneuropathy - E11.42???2.?Tinea pedis of both feet - B35.3 (Primary)???Specify :Acute problem, Uncomplicated (3???3.?Tinea unguium - B35.1???4.?Other hammer toe(s) (acquired), right foot - M20.41???Specify :Chronic problem???5.?Other hammer toe(s) (acquired), left foot - M20.42???Specify :Chronic problem, Worse? Plan: * Treatment: * Procedures:?Debride Nail 6-10:?Nail debridement?Due to the clinical pathology outlined in the exam findings, performance of this nail treatment is medically necessary as its management by an unskilled/untrained nonprofessional would put this patients foot and overall health at risk. Therefore, debridement to affected nail(s), as described in exam ( TA, T1, T2, T3, T4, T5, T6, T7, T8, T9, ), was performed exclusively by the physician of record to reduce/remove overall nail length, girth, thickness, subungual debris, and necrotic tissue, by manual and/or electrical means through the use of a nail nipper and/or dremel-type spice grinder, to a more viable healthy nail plate or bed tissue 6- 10 nails in total. Silver nitrate was used for any petechial bleeding as necessary. Definitive antifungal treatment options, both pharmaceutical and surgical, have been reviewed and discussed with the patient. The patient solely prefers the use of intermittent/as needed professional debridement services for their nail condition and understands the need for additional periodic treatments to maintain effectiveness in symptomatic relief - 40229.?Keratoma Treatment:?Parring or Cutting of Benign Hyperkeratotic Lesion(s)?(-56) 2-4 Lesions - Due to the at risk nature of the patients medical condition as documented in the exam findings, performance of this keratoderma treatment is medically necessary as its management by an unskilled/untrained nonprofessional would put this patients foot and overall health at risk. Therefore, the benign hyperkeratotic lesions, ( 4 ) in total, locations as stated and described in the exam (?Medial plantar,TA,T5,SUB MTH (s),1,B/L), were pared, and/or cut utilizing a sterile 15 blade, tissue nippers, and/or power dremel instrumentation by the physician of record - [id number].? * Procedure Codes:?58046 DEBRI DE NAIL, 6 OR MORE, Modifiers: XS 13426 TRIM SKIN LESIONS, 2 TO 4, Modifiers: XS * Preventive Medicine:? ??Counseling:?Discussion:?-13: Office or other outpatient visit for the evaluation and management of an established patient, which required a medically appropriate history and/or examination and LOW level of DECISION MAKING for: 1 STABLE ACUTE UNCOMPLICATED PROBLEM, 2 OR MORE MINOR PROBLEMS, OR 1 STABLE CHRONIC PROBLEM, THAT POSE(S) A LOW RISK FOR MORBIDITY/MORTALITY. The visit on the day of the encounter encompassed interpreting the data and educating the patient as to the nature of their condition, treatment options available according to their individual PMH, meds, allergies, and overall health/living conditions, as well as any potential risks or complications that may occur from a failure to adhere to, and participate in, the recommended course of therapy. The discussion included a complete verbal, and/or written explanation of the examination results, any x-rays taken, the proposed diagnosis, and outline of the treatment plan. A schedule for future care needs was also explained. The patient verbalized an understanding of the instructions at this time and agreed to be an active participant in their treatment. If the patient should think of any questions or concerns after the visit, I have encouraged the patient to call the office.?Digital Surgery:?Digital surgery was discussed with the patient, We elected to try conservative treatment at the present time, due to the patients medical history and increased asssociated post-operative risks.?Digital Treatment:?HT- I explained to the patient the possible etiologies of Hammertoes, including genetics/foot type/shoegear/activity level/exercise routine and the risks/benefits of all the different treatment options for their pain including: No treatment at all, Rest, Ice, New/supportive/wider/deeper Shoegear, Digital Padding/Strapping/Taping/Bracing/Gel protective sleeves, Foot/Ankle AFO Bracing, Stretching exercises, Deep Tissue Massage, Arch support/shoe inserts with splay metatarsal padding, and Custom orthoses. I insisted that any digital devices be removed daily and not worn overnight for safety. The patient is to carefully examine the toes daily for any skin irritation while using any splinting or padding device. The advantages and disadvantages of each option were discussed and the patients questions re: shoegear, padding, custom vs prefabricated inserts, activity level, and consistency in home treatment regimens for optimal success were answered to their verbally confirmed satisfaction.?Shoe Gear Counseling:?SHOE Rx - The patient was counseled in great detail on their muscoloskeletal foot and toe deformities which coincided with the dermatological presentations visualized on exam. We discussed how their deformities put the integrity of their feet at risk for potential pedal complications which makes the accomidative diabetic shoes and cutomizable inserts medically necessary. We discussed the different shoe and insert treatment types and options, as well as the important advantages for adhering to regularly wearing these accomidative devices daily. The patient was made aware of the fact that a failure to abide by these recommedations may be deleterious to their foot health as they are able to prevent many pedal complications such as skin irritation, skin ulceration, infection, and even loss of toe/foot/leg/or life. Time was also spent with the patient dispensing and discussing proper diabetic footcare techniques including daily skin moisturization, daily foot inspection for any interruption in skin integrity including open lesions, or sign of infection such as redness/malodor/drainage/swelling. Also discussed and recommended were procedures regarding daily shoe inspection for the presence of internal foreign bodies as well as any visualized irregular shoe or insert wear. Patient questions re: shoes, inserts, and self foot inspections were answered to their satisfaction as the patient verbally confirmed a full understanding of the above information, Patient DEFERS recommended Extra Depth Orthopedic pressure-accommodative shoes against medical advice.?Tinea Pedis:?Given recent successful results to treatment, The patient is to cont the rx cream as directed.? ??Screening/Special Tests:?Fall Risk?Screening:?No falls in the past year ?FALLS: Screening for Future Fall Risk?Have you had any falls with injury in the past year??No * Follow Up:?3 Months * Images: * Sign off status: Completed true * Provider:?Christi Schuster DPM Date:? Generated for Bernabe pedroza/Carlyn/Shawn on:?09/10/2024 11:13 AM EST History and Physical Notes * HPI (History of Present Illness) Category Sub-Category Detail Notes Category Not es Toe pain Location: B/L feet Duration: several years Course: worse Aggravated by: shoes, any pressure Treatments: change in shoes Skin problems Nature: scaling , redness Location: B/L Duration: several days Course: improved Treatments: Medication (Ciclopir ox Olamine 0.77 Cream) Econazole from Dermatology At Risk footcare Pt States Last PCP Visit: Date: 4 Examination Category Sub-Category Detail Notes Category Not es Neurological SENSORY: Neurological exa m demonstrates, reduced light touch sensation, reduced sharp/dull pin prick discrimination , B/L, 5.07 monofilament test performed at plantar aspects of 5 varied sites per foot shows sensation, reduced , B/L Dermatologic SKIN FINDINGS: Skin shows appro ximately 75 percent LESS, sign(s) of, erythema, scaling, in a moccasin fashion, no fissure(s) present, B/L Skin exam reveals Keratotic lesion(s) located at , , Medial plantar,TA,T5,SUB MTH (s),1,B/L Orthopedic BUNION: Medially promine nt 1st MPJ, inflammation present, erythema at exostosis, RIGHT, Lateral tracking 1st MPJ incompletely reducible, B/L FOOTWEAR: worn, non-supportive , shoe gear properties exacerbate patient's foot/toe deformity DIGITAL DEFORMITIES: Digital contracture , PIPJ, 2-5 B/L, incompl-reducible to push-up test, no over, nor underlapping, there is evidence of shoe producing skin irritation MUSCLE STRENGTH: 5/5 all groups in a symmetrical fashion, B/L General Examination GENERAL APPEARANCE: Reveals a pleasant, alert, well nourished, well-developed, well hydrated individual, who demonstrates proper attention to hygiene/body habitus, and is in no acute distress, Pt serves as own historian for office visit today FOOT EXAM: Lower Extremity Neurological Exa m performed:: Yes Date Visual exam of foot performed:: Yes Date: 08/14/2024 ORIENTED: person, place, and t ciro Footwear Evaluation Footwear Evaluation performe d:: Yes Ophthalmology Referral DIABETES EYE EXAM Procedure Perform ed:: Yes ?Date of Exam Performed: 08/24/2023 Findings of Diabetic Eye Exam:: no retin opathy Vascular DP PULSES (B): 3/4, B/L PT PULSES (B): 3/4, B/L CAPILLARY FILL TIME: immediate, all digi ts, B/L TEMPERTURE GRADIENT (C): normal, warm to cool, proximal to distal, B/L, B/L TROPHIC CONDITION-TEXTURE/ELASTICITY/TURGOR/HAIR GROWTH (B): normal, B/L Nails NAILS are: Elongated, overg rown, dystrophic, lytic, greater than 3mm thick, discolored and friable with crumbly malodorous subungual debris, TA, T1, T2, T3, T4, T5, T6, T7, T8, T9
--- OUTSIDE RECORDS SUMMARY | 2024-09-10 11:14 | XMS_ITS ---
Author Organization [facility] Address [address] [place] [id number] Care Team Providers Care Cutting Machine Fixer Name Role Phone Colten Ulloa Primary Care Provider Rosita Askew [phone] Encounters Encounter Location Date Provider Diagnosis [address] [address] 07/08/2024 Rosita Ferreira Plan Of Treatment Next Appt Details Provider Name:Christi vasquez, 11/13/2024 09:00:00 AM, [address] [place] [address], [phone], Progress Notes * Kiarra YADAVyl ADOB: [birth year] (68 yo F)Acc No.[id number]:07/08/2024 Progress Note Patient:?Kiarra YADAVyl Joaquin Provider:?Rosita Ferreira DPM :1955???Age:68 Y???Sex:Female D ate:07/08/2024 Address:[address] [place], [place] [id number] Pcp:Colten Ulloa Subjective: * Chief Complaints: * ??? * Medical History:? Objective: * Vitals:? Assessment: Plan: * Treatment: * Images: * The named appointment provid er may or may not be the originator of this progress note, and it is not deemed complete until electronically signed by the appointment provider. Sign off status: Pending * Provider:?Rosita Ferreira DPM Date:?1 09/08/2023 Generated for Bernabe pedroza/Carlyn/Shawn on:?09/10/2024 11:14 AM EST
--- OUTSIDE RECORDS SUMMARY | 2024-09-10 11:14 | XMS_ITS | Continuity of Care Document ---
[facility] Address [address] [place] [address]- Care Team Providers Care Oxyacetylene Torch Operator Name Role Phone Ly Hamilton Primary Care Physician Encounter [facility] Date(s): 07/29/24 - 08/28/24 [facility] Adult [address] [place] [address]- Encounter Type: Triage Allergies, Adverse Reactions, Alerts Substance Criticality Severity Reaction Reaction Severity Status sulfa drugs ?reaction Active Macrobid 1 Active Latex rash, skin irritation Active Other Environmental Allergy Active levoFLOXacin 2 Activ e 1Vomiting, dizziness 2Diarrhea Immunizations Given and Recorded Vaccine Date Status Refusal Reason pneumococcal 20-valent conjugate vaccine 11/07/23 Given SARS-CoV-2(COVID-19)mRNA-LNP vac([id number]) 04/28/23 Recorded [id number] bivalent booster vax 05/27/22 Recorded influenza virus vaccine, inactivated 05/04/22 Give n influenza virus vaccine, inactivated 06/11/20 Sharad rded influenza virus vaccine, inactivated 06/11/19 Give n influenza virus vaccine, inactivated 1 06/22/18 Gi alva influenza virus vaccine, inactivated 2 06/02/17 Gi alva influenza virus vaccine, inactivated 05/27/16 Give n influenza virus vaccine, inactivated 08/21/14 Give n influenza virus vaccine, inactivated 3 05/09/13 Gi alva influenza virus vaccine, inactivated 06/23/09 Give n influenza virus vaccine, inactivated 07/07/08 Give n influenza virus vaccine, inactivated 07/10/07 Give n tetanus/diphtheria/pertussis, acel(Tdap) 01/12/22 Recorded tetanus/diphtheria/pertussis, acel(Tdap) 08/21/14 Given SARS-CoV-2 (COVID-19) mRNA BNT-162b2 vac 05/03/21 Recorded SARS-CoV-2 (COVID-19) mRNA BNT-162b2 vac 09/11/20 Recorded SARS-CoV-2 (COVID-19) mRNA BNT-162b2 vac 08/21/20 Recorded Influenza Virus Vaccine (oldterm) 05/07/20 Recorde d FluLaval (oldterm) 4 03/19/12 Given Fluzone Preservative-Free (oldterm) 5 06/21/11 Giv en Tetanus Toxoid Vaccine (oldterm) 10/13/06 Given Tetanus Toxoid Vaccine (oldterm) 01/28/03 Given Pneumococcal Poly (PPV23) (oldterm) 08/14/06 Given Influenza Inactive (IM) (oldterm) 08/14/06 Given 1Result Comment: [06/22/2018] [id number] 2Result Comment: [06/02/2017] [facility] [id number] 3Admin Note: FLUARIX 4Admin Note: VIS GIVEN 5Admin Note: REFUSED Medications Alcohol Pads See Instructions, # 100 each, Refills 3, Tot. Refills 3, Maintenance, Check glucose once a day. Dx T2DM E11.9, 01/09/24 12:03:00 PM EDT, Supply, 160, cm, 11/07/23 8:35:00 EDT, Height Start Date: 01/09/24 Status: Ordered Quantity: 100.0 Unit: each Repeat number: 4 atorvastatin 80 mg oral tablet 1 tablet, By Mouth, Daily, # 90 tablet, 1 Refills, Maintenance, 07/07/24 2:13:00 PM EST, [facility] # [facility], 160, cm, 02/02/24 8:30:00 EDT, Height Start Date: 07/07/24 Status: Ordered Quantity: 90.0 Unit: tablet Repeat number: 1 Freestyle Lite Lancets See Instructions, # 100 each, Refills 3, Tot. Refills 3, Maintenance, Check glucose once a day. Dx T2DM E11.9, 01/09/24 12:03:00 PM EDT, Supply, 160, cm, 11/07/23 8:35:00 EDT, Height Start Date: 01/09/24 Status: Ordered Quantity: 100.0 Unit: each Repeat number: 4 Freestyle Lite Monitor See Instructions, # 1 each, Refills 0, Tot. Refills 0, Maintenance, Check glucose once a day. Dx T2DM E11.9, 01/09/24 12:03:00 PM EDT, Supply, 160, cm, 11/07/23 8:35:00 EDT, Height Start Date: 01/09/24 Status: Ordered Quantity: 1.0 Unit: each Repeat number: 1 Freestyle Lite Test Strips See Instructions, # 100 each, Refills 3, Tot. Refills 3, Maintenance, Check glucose once a day. Dx T2DM E11.9, 01/09/24 12:03:00 PM EDT, Supply, 160, cm, 11/07/23 8:35:00 EDT, Height Start Date: 01/09/24 Status: Ordered Quantity: 100.0 Unit: each Repeat number: 4 hydrochlorothiazide 25 mg oral tablet 1, tablet, By Mouth, Daily, # 90 tablet, Refills 3, Maintenance, 09/20/23 3:04:00 PM EST, Route to Pharmacy Electronically, [facility] # 50, 160, cm, 08/04/23 17:05:00 EST, Height Start Date: 09/20/23 Status: Ordered Quantity: 90.0 Unit: tablet Repeat number: 1 ibuprofen 800 mg oral tablet 800 mg, 1, tablet, By Mouth, 3 times a day, PRN, # 30 tablet, Refills 1, Tot. Refills 1, Maintenance, Pain , Moderate, 03/26/24 12:39:00 PM EDT, Route to Pharmacy Electronically, [facility] # 50, Partial fill upon patient request if the prescription is for a schedule II opioid drug., 160, cm, 02/02/24 8:30:00 EDT, Height Start Date: 03/26/24 Status: Ordered Quantity: 30.0 Unit: tablet Repeat number: 2 losartan 100 mg oral tablet 1 tablet, By Mouth, Daily, # 90 tablet, 3 Refills, Maintenance, 11/22/23 11:21:00 AM EDT, [facility] # [facility], 160, cm, 11/07/23 8:35:00 EDT, Height Start Date: 11/22/23 Status: Ordered Quantity: 90.0 Unit: tablet Repeat number: 1 metFORMIN 1000 mg oral tablet 1 tablet, By Mouth, 2 times a day, # 180 tablet, 1 Refills, Maintenance, 04/21/24 8:07:00 AM EDT, [facility] # [facility], 160, cm, 02/02/24 8:30:00 EDT, Height Start Date: 04/21/24 Status: Ordered Quantity: 180.0 Unit: tablet Repeat number: 1 montelukast 10 mg oral tablet 1, tablet, By Mouth, Daily, # 90 tablet, Refills 1, Tot. Refills 1, Maintenance, 04/15/24 2:09:00 PMEDT, Route to Pharmacy Electronically, [facility] # [facility], 160, cm, 02/02/24 8:30:00 EDT, Height Start Date: 04/15/24 Status: Ordered Quantity: 90.0 Unit: tablet Repeat number: 2 omeprazole 20 mg oral enteric coated capsule 1 capsule, By Mouth, Daily, # 90 capsule, 1 Refills, Maintenance, 07/24/24 11:42:00 PM EST, [facility] # [facility], 160, cm, 02/02/24 8:30:00 EDT, Height Start Date: 07/24/24 Status: Ordered Quantity: 90.0 Unit: capsule Repeat number: 1 Ozempic 2 mg/3 mL (0.25 mg or 0.5 mg dose) subcutaneous solution See Instructions, INJECT 0.5MG UNDER THE SKIN ONCE WEEKLY. ROTATE INJECTION SITES, # 3 mL, 5 Refills, Maintenance, 04/03/24 11:12:00 AM EDT, [facility] # [facility], 160, cm, 02/02/24 8:30:00 EDT, Height Start Date: 04/03/24 Status: Ordered Quantity: 3.0 Unit: mL Repeat number: 6 pioglitazone 30 mg oral tablet 1 tablet, By Mouth, Daily, # 90 tablet, 1 Refills, Maintenance, 04/15/24 5:57:00 PM EDT, [facility] # [facility], 160, cm, 02/02/24 8:30:00 EDT, Height Start Date: 04/15/24 Status: Ordered Quantity: 90.0 Unit: tablet Repeat number: 1 ProAir HFA 90 mcg/inh inhalation aerosol with adapter 2, puffs, Inhalation, Every 6 hours, PRN, # 8.5 Gm, Refills 2, Tot. Refills 2, Maintenance, :29:00 AM EST, Aerosol, Route to Pharmacy Electronically, [id number], [facility] # [facility], 160, cm, 07/12/23 9:06:00 EST, Height, 82.6, kg, 09/16/21 9:42:00 EST, Dry Weight Start Date: 08/02/23 Status: Ordered Quantity: 8.5 Unit: g Repeat number: 3 Indication: Unspecified asthma, uncomplicated Vitamin B12 0 Refills, Maintenance, 01/21/21 10:46:00 AM EDT, Partial fill upon patient request if the prescription is for a schedule II opioid drug. Start Date: 01/21/21 Status: Ordered Repeat number: 1 Vitamin D2 50,000 intl units (1.25 mg) oral capsule 1 capsule, By Mouth, Every week, # 4 capsule, 0 Refills, Maintenance, 08/23/24 2:42:00 PM EST, [facility] # [facility], 160, cm, 07/31/24 10:34:00 EST, Height Start Date: 08/23/24 Status: Ordered Quantity: 4.0 Unit: capsule Repeat number: 1 Problem List Condition Confirmation Course Effective Dates Status Health Status Informant Arthritis Confirmed Active Persistent asthma without complication Confirmed Worsening 12/11/06 Active Atrophic vaginitis Confirmed Active Atypical ductal hyperplasia of right breast Confirmed Active Venous insufficiency Confirmed Active FH - Family history 1 Confirmed 07/07/08 Active Gastric reflux Confirmed Active Hearing loss of right ear due to cerumen impaction Confirmed Active Hypercholesterolemia Confirmed Active Hypertension Confirmed Active 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 Long-term current use of tamoxifen Confirmed Active Microalbuminuria Confirmed Active Obese class I Confirmed Active Seasonal allergic rhinitis Confirmed 03/09/06 Active Type 2 diabetes mellitus with renal manifestations Confirmed 09/21/08 Active Diabetes mellitus, type 2 Confirmed Active 1lung cancer, peripheral vascular disease, hypertension, hypercholesterolemia Social History Social History Type Response Smoking Status Never smoker entered on: 02/13/18 Sex Sex Representation Female (finding) Patient Care team information Care Team Personnel Name: Umu Laura Position: [facility] Onco RN Member Role: Primary Care Nurse Name: Ly Hamilton Position: [facility] PCO Associate Professional Member Role: PCP Address: [address] [place] [address] Telecom: Care Team Related Persons Name: SIMONE YADAV Insurance Providers Guarantor name: CHAD LEIF [facility] Plan Information #: 1 Payer: [employer] AD[employer] HMO Member Number: NA Policy Number: NA Group Number: NA
== END 2024-09-10 10:17 | disposition home or self-care (01) ==
LOC: HO.MAMMO 10:16
PROVIDERS: PCP Internal Medicine; Visit Provider Internal Medicine
DX: Z12.31 Encounter for screening mammogram for malignant neoplasm of breast (principal)
CPT/HCPCS: 77063; 77067

== ENCOUNTER → 2024-09-10 10:30 | Outpatient (BNV) | payer MEDICARE, SELFPAY | PROVIDERS: PCP Internal Medicine; Visit Provider Internal Medicine | DX: Z12.31 Encounter for screening mammogram for malignant neoplasm of breast (principal) | CPT/HCPCS: 77063; 77067 ==